=== PATIENT | male | born 1995 | race Caucasian/White ===

== ENCOUNTER 2016-10-11 18:24 | Emergency (ER) | payer OTHER ==
[2016-10-11] MEDS ORDERED: BUPIVACAINE HCL/PF 0.5% 30 ML VIAL ONE (19:08)
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
== END 2016-10-11 19:44 | disposition home or self-care (01) ==
LOC: ER 18:24
DX: S01.101A Unspecified open wound of right eyelid and periocular area, initial encounter (principal); V94.0XXA Hitting object or bottom of body of water due to fall from watercraft, initial encounter; Y92.828 Other wilderness area as the place of occurrence of the external cause; Y93.16 Activity, rowing, canoeing, kayaking, rafting and tubing
CPT/HCPCS: 12011; 99283